=== PATIENT | male | born 1990 | race Hispanic/Latino ===

== ENCOUNTER 2021-01-23 10:14 | Emergency (ER) | payer SELFPAY ==
[~2021-01-23] VITALS: Ht 165.1 cm; Wt 74.0 kg
[2021-01-23] MEDS ORDERED: PEPCID20 MG PO (10:36)
[2021-01-23] MEDS ORDERED: KEFLEX500 M1 PO ×3 (10:36→16:29)
[2021-01-23] MEDS ORDERED: MEDDOSEPAK PO (10:36)
[2021-01-23] MEDS ORDERED: BACTRIM DS1 TAB PO ×3 (10:37→16:29)
[2021-01-23] MEDS ORDERED: NAPROXEN500 MG PO ×2 (12:00→16:29)
[2021-01-23 12:05] VITALS: BP 128/92
== END 2021-01-23 12:05 | disposition home or self-care (01) | DRG 603 ==
LOC: ED 10:14 → EDBD 10:52 → ED 12:05
PROC: 0H9LXZZ Drainage of Left Lower Leg Skin, External Approach (ICD-10-PCS; principal; 2021-01-23)
DX: L02.416 Cutaneous abscess of left lower limb (principal); B95.62 Methicillin resistant Staphylococcus aureus infection as the cause of diseases classified elsewhere

== ENCOUNTER 2021-01-24 11:48 | Emergency (ER) | payer SELFPAY ==
[~2021-01-24] VITALS: Ht 165.1 cm; Wt 69.0 kg
[~2021-01-24 11:48] MED LIST: BACTRIM DS1 TAB PO; KEFLEX500 M1 PO; MEDDOSEPAK PO; NAPROXEN500 MG PO; PEPCID20 MG PO
[2021-01-24 12:50] VITALS: BP 124/83
== END 2021-01-24 12:55 | disposition home or self-care (01) | DRG 951 ==
LOC: ED 11:48
DX: Z48.01 Encounter for change or removal of surgical wound dressing (principal)

== ENCOUNTER 2021-01-28 13:02 | Emergency (ER) | payer SELFPAY ==
[~2021-01-28] VITALS: Ht 165.1 cm; Wt 70.5 kg
[2021-01-28 14:14] VITALS: BP 119/70
== END 2021-01-28 14:17 | disposition home or self-care (01) | DRG 951 ==
LOC: ED 13:02
DX: Z48.01 Encounter for change or removal of surgical wound dressing (principal)